=== PATIENT | female | born 1955 | race Caucasian/White ===

== ENCOUNTER 2025-05-30 09:35 | Observation (INO) ==
--- NOTE | 2025-05-22 08:33 | Anesthesiology Consultation ---
Date of Service May 22, 2025 Assessment & Plan (1) Encounter for pre-operative examination: Chart Review Chart Review: Acceptable Risk for Surgery and Patient NOT seen in Pre Admission Testing -Infectious Disease screening: Per PAT nursing assessment on 05/20/25. No known infectious disease contacts in past 10 days or current infectious disease symptoms. No recent travel outside the country. History Surgery Operation Date: 05/30/25 10:50 Proposed Procedures p Total Vaginal Hysterectomy with Bilateral Salpingo-Oophorectomy, Uterosacral Vaginal Vault Suspension - Gianluca Camargo MD s and Possible Mid-Urethral Sling (Polypropylene Mesh) Cystoscopy - Gianluca Camargo MD Height/Weight Height: 5 ft 3 in Weight: 71.668 kg Allergies Allergy/AdvReac Type Severity Reaction Status Date / Time codeine Allergy Severe Hives Verified 05/20/25 08:18 latex Allergy Unknown Rash Verified 05/20/25 08:18 Medications Home Medications Medication Instructions Recorded Confirmed Last Taken ascorbic acid (vitamin C) 1,000 mg 1,000 mg PO QAM 05/20/25 05/20/25 Unknown tablet (Vitamin C) calcium 600 mg capsule 600 mg PO QAM 05/20/25 05/20/25 Unknown cholecalciferol (vitamin D3) 125 125 mcg PO DAILY 05/20/25 05/20/25 Unknown mcg (5,000 unit) tablet (Vitamin D3) coenzyme Q10 100 mg capsule (Co 100 mg PO QAM 05/20/25 05/20/25 Unknown Q-10) cyanocobalamin (vitamin B-12) 1,000 mcg PO QAM 05/20/25 05/20/25 Unknown 1,000 mcg tablet (Vitamin B-12) ibandronate 150 mg tablet 150 mg PO MONTHLY 05/20/25 05/20/25 Unknown ibuprofen 200 mg tablet (Advil) 200 mg PO Q6H PRN prn 05/20/25 05/20/25 Unknown pravastatin 10 mg tablet 10 mg PO QAM 05/20/25 05/20/25 Unknown Past Medical History Medical History Hyperlipidemia Pelvic pain in female Past Surgical History Surgical History History of section History of colonoscopy History of surgery on right wrist (2023) fracture, hardware in place Social History Smoking Status: Never smoker Do You Dip or Chew Tobacco: No Hx Alcohol Use: No Hx Substance Use: No substance use type: does not use Lab Results Anesthesia Preop Results Results Anesthesia Widget: WBC 5.28 K/ul (4.8-10.8) 05/19/25 Hgb 14.5 g/dl (12.0-16.0) 05/19/25 Hct 42.1 % (37.0-47.0) 05/19/25 Plt 303 K/uL (130-400) 05/19/25 Na 141 mmol/L (136-145) 05/19/25 K 4.5 mmol/L (3.5-5.1) 05/19/25 Cl 104 mmol/L (98-107) 05/19/25 CO2 29 mmol/L (21-32) 05/19/25 BUN 7 mg/dl (6-23) 05/19/25 Creat 0.52 mg/dl (0.6-1.2) L 05/19/25 Glucose Level 100 mg/dl (70-99(Fasting)) H 05/19/25 Blood Type O Negative 05/19/25 Antibody Screen NEGATIVE 05/19/25 Testing Electrocardiogram Date: 05/19/25 Findings: + NSR @ (71bpm) Rightward axis
--- NOTE | 2025-05-30 05:38 | History & Physical Report ---
Date of Service May 30, 2025 Assessment & Plan (1) Incomplete uterovaginal prolapse: Plan: We reviewed the cystocele and uterine prolapse on exam. I offered a trial of pessary but she prefers to have surgery. I reviewed robotic vs transvaginal surgery. She prefers a vaginal approach to her surgery including vaginal hysterectomy, possible BSO, uterosacral ligament suspension, anterior colporrhaphy, cystoscopy, and possible sling. We discussed the risks of surgery including infection, bleeding, injury, pain, mesh exposure, urinary retention. All questions answered. Informed consent confirmed. Present on Admission?: Yes Admission and Anticipated Discharge Date Admission Date: 05/30/2025 Anticipated date of discharge: 05/31/25 History of Present Illness Chief Complaint: Prolapse and incontinence Primary Care Provider: Linda Samuel MD Harriet Manuel is a 70 year old female P 3 who complains of prolapse and incontinence. Referred by Self . For the past few years, Harriet Manuel complains of worsening vaginal prolapse symptoms and incontinence. She feels a bulge protruding out the vaginal opening. She has increased urinary frequency every 2 hours, urgency, and a few times a week, urge incontinence. Less often, she may have LO with coughing or sneezing. Urinary: Leakage: mixed, primarily urge Has leakage a few times a week Wears pads: yes when she leaves the house She denies a sense of incomplete bladder emptying. Prior/current treatment include: none UTI: denies Voiding detail: Daytime frequency: every 2 hours Urgency yes Nocturia:1-2 times Hesitancy no Straining no Hematuria no Postvoid dribbling no Postvoid urgency no Manual reduction no Prolapse: She admits a palpable bulge. Her bulge symptoms have worsened over the last year Prior/ current treatments include none GI: Bowel habits: normal bowel movement She denies fecal incontinence. Prior/ current treatments include: none Gynecologic history: No prior gynecologic history. Allergies Allergy/AdvReac Type Severity Reaction Status Date / Time codeine Allergy Severe Hives Verified 05/20/25 08:18 latex Allergy Unknown Rash Verified 05/20/25 08:18 Home Medications Medication Instructions Recorded Confirmed Type ascorbic acid (vitamin C) 1,000 mg 1,000 mg PO QAM 05/20/25 05/20/25 History tablet (Vitamin C) calcium 600 mg capsule 600 mg PO QAM 05/20/25 05/20/25 History cholecalciferol (vitamin D3) 125 125 mcg PO DAILY 05/20/25 05/20/25 History mcg (5,000 unit) tablet (Vitamin D3) coenzyme Q10 100 mg capsule (Co 100 mg PO QAM 05/20/25 05/20/25 History Q-10) cyanocobalamin (vitamin B-12) 1,000 mcg PO QAM 05/20/25 05/20/25 History 1,000 mcg tablet (Vitamin B-12) ibandronate 150 mg tablet 150 mg PO MONTHLY 05/20/25 05/20/25 History ibuprofen 200 mg tablet (Advil) 200 mg PO Q6H PRN prn 05/20/25 05/20/25 History pravastatin 10 mg tablet 10 mg PO QAM 05/20/25 05/20/25 History Past Med/Surg History Problem List (Updated 05/30/25 @ 05:36 by Gianluca Camargo MD) Incomplete uterovaginal prolapse Encounter for pre-operative examination Medical History Pelvic pain in female Hyperlipidemia Surgical History History of colonoscopy History of surgery on right wrist (2023) fracture, hardware in place History of section Social History Smoking Status: Never smoker Second Hand Exposure: No; Do You Dip or Chew Tobacco: No; Tobacco Cessation Education Requested by Patient: No Hx Alcohol Use: No Hx Substance Use: No Preferred Language: [place] 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 Beliefs That Will Affect Care: None Current Living Situation: Spouse Other Information That Helps Us Care for You: No Feels Safe at Home: Yes Safety Concerns: Feels Safe At This Time Assistive Devices: Glasses Review of Systems Review of Systems: All systems reviewed & are unremarkable except as noted in HPI & below Physical Exam Constitutional: WD/WN, vitals as above Eyes: PERRL, conjunctivae normal, anicteric sclerae ENMT: external ear and nose normal, oropharynx normal Neck: trachea midline, no thyromegaly Respiratory: normal respiratory effort Cardiovascular: Rate/Rhythm: regular rate and regular rhythm Gastrointestinal (Abdomen): normal bowel sounds, soft, nontender, no hepatosplenomegaly Musculoskeletal: no cyanosis or clubbing, extremities motor strength 5/5 Skin: no rashes, warm and dry Psychiatric: A+Ox3, euthymic affect Code Status & VTE Plan VTE Prophylaxis Plan VTE Prophylaxis will be ordered: Yes
[2025-05-30] MEDS: metroNIDAZOLE 500 MG/100 ML BAG IV SCH (09:52)
[2025-05-30] MEDS: LR 15ML/HR IV SCH (09:52)
[2025-05-30] MEDS ORDERED: ROCURONIUM BROMIDE 10 MG/ML 5 ML VIAL IV ONE (09:53)
[2025-05-30] MEDS ORDERED: ONDANSETRON INJ 2 MG/ML 2 ML VIAL ONE (09:53)
[2025-05-30] MEDS ORDERED: DEXAMETHASONE SOD INJ 4 MG/ML VIAL ONE (09:53)
[2025-05-30] MEDS ORDERED: LIDOCAINE 2% 2 ML VIAL/AMP(20MG/ML) INFIL ONE (09:53)
[2025-05-30] MEDS ORDERED: PROPOFOL IV EMULSION 10 MG/ML 20 ML VIAL IV ONE ×2 (09:53→10:43)
[2025-05-30] MEDS ORDERED: MIDAZOLAM HCL 1 MG/ML 2ML VIAL ONE (09:55)
[2025-05-30] MEDS ORDERED: PROMETHAZINE HCL 6.25 MG in SODIUM CHLORIDE 0.9% 50 ML IV PRN (09:59)
[2025-05-30] MEDS ORDERED: ONDANSETRON INJ 2 MG/ML 2 ML VIAL IV PRN (09:59)
[2025-05-30] MEDS ORDERED: ATROPINE SULFATE 0.1 MG/ML 10ML SYR IV PRN (09:59)
[2025-05-30] MEDS ORDERED: NALOXONE HCL 0.4 MG/1 ML VIAL/CARP IV PRN (09:59)
[2025-05-30] MEDS ORDERED: FLUMAZENIL 0.1 MG/1 ML 10 ML VIAL IV PRN (09:59)
[2025-05-30] MEDS: PHENAZOPYRIDINE HCL 200 MG TAB PO STA (10:13)
[2025-05-30] MEDS: PHENAZOPYRIDINE HCL 200 MG TAB ONE (10:13)
[2025-05-30] MEDS ORDERED: PHENYLEPHRINE 100MCG/ML 5ML SYR ONE (10:50)
[2025-05-30] MEDS ORDERED: KETOROLAC 30 MG/ML VIAL ONE (11:01)
[2025-05-30] MEDS ORDERED: SUGAMMADEX SODIUM 200 MG/2 ML VIAL IV ONE (11:02)
[2025-05-30] MEDS: PREMARIN VAG CRM 14 APPLN/30 GM TUBE ONE (12:00)
[2025-05-30] MEDS: BUPIVACAINE LIPOSOME 1.3% 133 MG/10 ML VIAL ONE (12:05)
[2025-05-30] MEDS: LIDOCAINE 1%/EPINEPHRINE 1:100,000 50 ML VIAL ONE (12:05)
[2025-05-30] MEDS: HYDROmorphone INJ 1 MG/ML SYRINGE IV PRN (12:30)
--- NOTE | 2025-05-30 12:53 | Operative Report ---
Post Operative Report Pre & Post Diagnosis Operation Date: 05/30/25 10:50 Pre-Op Diagnosis: Stress Incontinence, Uterovaginal Prolapse: Incomplete Post-Op Diagnosis: Stress Incontinence, Uterovaginal Prolapse: Incomplete I identified the patient and participated in the time-out.: Yes Procedure Operation Date: 05/30/25 10:50 Actual Procedures p Total Vaginal Hysterectomy(Bilateral) - Gianluca Camargo MD s Uterosacral Vaginal Vault Suspension and Possible Mid-Urethral Sling (Polypropylene Mesh), Cystoscopy(Not Applicable) - Gianluca Camargo MD Surgeon Gianluca Camargo MD Public Aid Eligibility Assistant Ashlyn Patel PA-C Estimated Blood Loss 75 Findings Consistent with Post-Op Diagnosis Grade 2-3 cystocele, grade 2 uterine prolapse. Normal cervix, uterus. Ovaries were high in the pelvis, palpation revealed atrophic normal ovaries bilaterally. Cystoscopy revealed normal bladder dome, trigone, and urethra with excellent efflux of urine bilaterally. Fluids crystalloid Specimens cervix, uterus, vaginal mucosa Drains Romero catheter Anesthesia Type General Complications none Disposition Accompanied Patient To Recovery: Yes Disposition: Recovery Room Indications symptomatic uterovaginal prolapse, urinary incontinence Description of Procedure After Harriet Manuel was identified in the preoperative area, the indictions, risks, benefits, and alternatives were reviewed. All questions answered. Informed consent confirmed. Patient was taken to the operating room and general anesthesia was given by anesthesia service. Patient was placed in dorsal lithotomy position using Cale stirrups and was prepped and draped in the usual sterile fashion. Time out was performed. A Romero catheter was placed in the bladder. A weighted speculum was placed in the vagina and a [place] retractor was used to retract the bladder. The cervix was grasped with a single tooth tenaculum and the vagina mucosa was infiltrated with 1% lidocaine with epinephrine. An incision was made at the junction of the cervix and vagina with the Bovie. The posterior vaginal mucosa was sharply dissected away from the cervix until the peritoneum was identified and entered sharply. A long billed weighted speculum was placed in the posterior incision to retract the rectum. The anterior vaginal mucosa was sharply dissected from the cervix until the peritoneum was identified and entered sharply. A Stacey retractor was placed through the anterior incision to retract the bladder. The uterosacral ligaments were bilaterally Luciana clamped, transected, and suture ligated with 0 Vicryl. The cardinal ligaments were bilaterally Luciana clamped, transected, and suture ligated with 0 Vicryl. The uterine vessels were bilaterally Luciana clamped, transected, and suture ligated with 0 Vicryl for excellent hemostasis. The fundus was delivered posteriorly. The round and utero-ovarian ligaments were double bilaterally clamped, transected, and double ligated with 0 Vicryl for excellent hemostasis. The cervix and uterus was handed off as specimen. Inspection of pedicles confirmed excellent hemostasis. The ovaries were not visible, but could be palpated bilaterally high in the pelvis. The ovaries were atrophic and small. The bowel was packed with a moist lap sponge. The uterosacral ligaments were identified and grasped high in the pelvis, cephalad to the level of the ischial spines with Allis clamps. Where the Allis clamps were placed, interrupted sutures of 0 PDS were placed through the ligaments and sutured to the vaginal cuff bilaterally. The sutures were tagged to be tied later. The lap sponge was removed. The vaginal cuff was closed with 0 Vicryl in a series of figure of eight sutures. The vaginal mucosa overlying the cystocele was grasped with Allis clamps and infiltrated with 1% lidocaine with epinephrine. An incision was made with the scalpel and the mucosa was sharply dissected from the cystocele. The pubocervical fascia was imbricated in the midline with a series of interrupted 2-0 Vicryl. A second imbricating later was performed with 2-0 Vicryl in a mattress fashion. The excess mucosa was trimmed and sent to pathology as specimen. The incision was closed with 2-0 Vicryl in a running fashion. The vaginal mucosa overlying the urethra was infiltrated with 1% lidocaine with epinephrine. An incision was made with the scalpel and the vaginal mucosa was sharply dissected from the urethra bilaterally to the pubic rami. The Solyx sling was assembled and the needle introducer was placed through the incision toward the left pubic rami and inserted into the obturator internus. The needle introducer was then attached to the other end of the sling and inserted into the incision, advanced toward the right pubic rami and inserted into the obturator internus. Cystoscopy was performed with a 17 F 70 deg cystoscope with 250 ml of irrigation fluid. Inspection of the bladder dome, trigone and urethra was normal without lesions. Excellent efflux of ureters was demonstrated bilaterally. The cystoscope was removed. The sling was appropriately tensioned, just gently laying on the posterior aspect of the urethra. The incision was closed with 2-0 Vicryl in a running fashion. Long acting bupivacaine was infiltrated into the obturator spaces. Estrogen cream was applied vaginally. All sponge, lap , and needle counts were correct. The patient was awakened, extubated, and transferred to recovery in good condition. I attest to the content of the Intraoperative Record and any orders documented therein. Any exceptions are noted below. Public Aid Eligibility Assistant: Ashlyn Patel PA-C No qualified resident was available. The advanced practice practitioner was necessary for patient positioning, retraction, irrigation, wound closure.
--- NOTE | 2025-05-30 13:25 | Anesthesiology Progress Note ---
Date of Service May 30, 2025 Anesthesia Post Procedure Vital Signs Vital Signs: Temp Pulse Resp BP Pulse Ox O2 Del Method O2 Flow Rate 05/30/25 13:20 80 16 109/61 97 Nasal Cannula 2 05/30/25 13:10 79 12 114/65 98 Nasal Cannula 2 05/30/25 13:00 36.5 C 89 13 104/65 95 Room Air 05/30/25 12:50 83 12 110/57 L 97 Oxymask 5 05/30/25 12:40 84 12 110/60 98 Oxymask 5 05/30/25 12:30 88 19 107/58 L 99 Oxymask 5 05/30/25 12:23 36 C L 92 H 14 106/56 L 96 Oxymask 5 05/30/25 09:58 36.8 C 86 20 170/90 H 98 Room Air Pain Intensity Abdomen: Pain Intensity: 4 Transfer of Care Handoff Completed per policy Notes Mental Status: alert / awake / arousable Patient Amnestic to Procedure: Yes Nausea / Vomiting: adequately controlled Pain: adequately controlled Airway Patency, RR, SpO2: stable & adequate BP & HR: stable & adequate Hydration State: stable & adequate Anesthetic Complications: no major complications apparent
[2025-05-30] MEDS: ACETAMINOPHEN 325 MG TAB PO PRN (14:36)
[2025-05-30] MEDS: IBUPROFEN 600 MG TAB PO PRN (17:04)
[2025-05-30] MEDS: HYDROmorphone INJ 0.5 MG/0.5 ML SYR IV PRN (18:18)
[2025-05-30] MEDS: FAMOTIDINE 20 MG TAB PO SCH (19:59)
[2025-05-30] MEDS: FAMOTIDINE 20 MG TAB ONE (19:59)
[2025-05-30] MEDS: ONDANSETRON INJ 2 MG/ML 2 ML VIAL IV PRN (20:37)
[2025-05-30] MEDS: LORazepam 0.5 MG TAB PO PRN (21:08)
[2025-05-31 06:40] LABS: Hematocrit (blood only) 35.4 % (37.0-47.0); Hemoglobin 12.2 g/dl (12.0-16.0); Immature Granulocytes # (auto) 0.04 K/uL (0.01-0.20); Immature Granulocytes % (auto) 0.3 %; Mean Corpuscular Hemoglobin 32.9 pg (25.0-34.0); Mean Corpuscular Volume 95.4 fL (80.0-100.0); Platelet Count 256 K/uL (130-400); RDW Standard Deviation 43.2 fL (36.4-46.3); Red Blood Count 3.71 M/uL (4.20-5.40); White Blood Count 11.60 K/ul (4.8-10.8)
[2025-05-31 06:57] LABS: Anion Gap 6.0 (3-11); Blood Urea Nitrogen 9.0 mg/dl (6-23); Calcium 8.6 mg/dl (8.6-10.3); Carbon Dioxide 27.0 mmol/L (21-32); Chloride 102.0 mmol/L (98-107); Creatinine Clr Calc Pharmacy 92.1 ml/min; Glucose 154.0 mg/dl (70-99(Fasting)); Potassium 4.8 mmol/L (3.5-5.1); Sodium 135.0 mmol/L (136-145)
--- NOTE | 2025-05-31 07:35 | Gynecologic Progress Note ---
Date of Service May 31, 2025 Assessment & Plan (1) Incomplete uterovaginal prolapse: Plan: POD#1 s/p vaginal hysterectomy, uterosacral ligament suspension, anterior colporrhaphy, sling and cystoscopy. Recovering well Post op labs reviewed and as expected Bladder scan then discharge home Post op instructions reviewed, all questions answered Present on Admission?: Yes Admission and Anticipated Discharge Date Admission Date: May 30, 2025 Anticipated date of discharge: 05/31/25 Subjective Feeling well. Denies SOB/CP/Nausea. Voiding well. Pain well controlled. Tolerating PO diet Review of Systems Review of Systems: All systems reviewed & are unremarkable except as noted in HPI & below Physical Exam Constitutional: WD/WN, vitals as above Eyes: PERRL, conjunctivae normal, anicteric sclerae ENMT: external ear and nose normal, oropharynx normal Neck: trachea midline, no thyromegaly Respiratory: normal respiratory effort Cardiovascular: Rate/Rhythm: regular rate and regular rhythm Gastrointestinal (Abdomen): normal bowel sounds, soft, nontender, no hepatosplenomegaly No rebound or guarding Musculoskeletal: no cyanosis or clubbing, extremities motor strength 5/5 Non tender calves, neg edema Skin: no rashes, warm and dry Psychiatric: A+Ox3, euthymic affect Results & Data Vital Signs (Past 12 Hours) Vital Signs Temp Pulse Resp BP Pulse Ox O2 Del Method 05/31/25 03:23 36.7 C 82 16 116/69 95 Room Air 05/30/25 23:20 Room Air 05/30/25 22:57 36.9 C 71 16 119/71 97 Room Air Laboratory Results Post op labs reviewed, as expected labs after surgery
--- NOTE | 2025-05-31 07:40 | Discharge Summary ---
Date of Service May 31, 2025 Admission HPI Per Admitting Provider Harriet Manuel is a 70 year old female P 3 who complains of prolapse and incontinence. Referred by Self . For the past few years, Harriet Manuel complains of worsening vaginal prolapse symptoms and incontinence. She feels a bulge protruding out the vaginal opening. She has increased urinary frequency every 2 hours, urgency, and a few times a week, urge incontinence. Less often, she may have LO with coughing or sneezing. Urinary: Leakage: mixed, primarily urge Has leakage a few times a week Wears pads: yes when she leaves the house She denies a sense of incomplete bladder emptying. Prior/current treatment include: none UTI: denies Voiding detail: Daytime frequency: every 2 hours Urgency yes Nocturia:1-2 times Hesitancy no Straining no Hematuria no Postvoid dribbling no Postvoid urgency no Manual reduction no Prolapse: She admits a palpable bulge. Her bulge symptoms have worsened over the last year Prior/ current treatments include none GI: Bowel habits: normal bowel movement She denies fecal incontinence. Prior/ current treatments include: none Gynecologic history: No prior gynecologic history. Admission Exam (Per Admitting) Constitutional WD/WN, vitals as above Eyes PERRL, conjunctivae normal, anicteric sclerae ENMT external ear and nose normal, oropharynx normal Neck trachea midline, no thyromegaly Respiratory normal respiratory effort Cardiovascular Rate/Rhythm: regular rate and regular rhythm Gastrointestinal (Abdomen) normal bowel sounds, soft, nontender, no hepatosplenomegaly Musculoskeletal no cyanosis or clubbing, extremities motor strength 5/5 Skin no rashes, warm and dry Psychiatric A+Ox3, euthymic affect Discharge Data Procedures Performed Operation Date: 05/30/25 10:50 Actual Procedures p Total Vaginal Hysterectomy(Bilateral) - Gianluca Camargo MD s Uterosacral Vaginal Vault Suspension and Mid-Urethral Sling, Cystoscopy(Not Applicable) - Gianluca Camargo MD Hospital Course (1) Incomplete uterovaginal prolapse: POD#1 s/p vaginal hysterectomy, uterosacral ligament suspension, anterior colporrhaphy, sling and cystoscopy. Recovering well Post op labs reviewed and as expected Bladder scan then discharge home Post op instructions reviewed, all questions answered
[2025-05-31] MEDS: PRAVASTATIN SOD 10 MG TAB PO SCH (09:55)
[2025-05-31] MEDS: CYANOCOBALAMIN (B-12) 500 MCG TABLET PO SCH (09:56)
== END 2025-05-31 13:35 | disposition home or self-care (01) ==
LOC: ASU 09:35 → 4E1 09:35